=== PATIENT | male | born 1945 | race Caucasian/White ===

== ENCOUNTER 2018-08-12 20:01 | Observation (INO) | payer MEDICARE, OTHER ==
[~2018-08-12] VITALS: Ht 167.6 cm; Wt 132.3 kg
[2018-08-12 20:42] LABS: BASOPHILS ABSOLUTE AUTO 0.05 K/mm3 (0.00-0.23); BASOPHILS PERCENT AUTO 1 % (0-2); EOSINOPHILS ABSOLUTE AUTO 0.24 K/mm3 (0.00-0.68); EOSINOPHILS PERCENT AUTO 3 % (0-6); Hematocrit 45.4 % (37.0-53.0); Hemoglobin 14.8 g/dL (13.5-17.5); IMMATURE GRAN ABSOLUTE AUTO 0.03 K/mm3 (0.00-0.10); IMMATURE GRAN PERCENT AUTO 0 % (0-1); LYMPHOCYTES ABSOLUTE AUTO 2.64 K/mm3 (0.84-5.20); LYMPHOCYTES PERCENT AUTO 30 % (21-46); MONOCYTES ABSOLUTE AUTO 1.04 K/mm3 (0.16-1.47); MONOCYTES PERCENT AUTO 12 % (4-13); Mean Corpuscular HGB 30.6 pg (26.0-34.0); Mean Corpuscular HGB Conc 32.6 g/dL (31.5-36.5); Mean Corpuscular Volume 94 fL (80-100); Mean Platelet Volume 10.3 fL (9.1-12.4); NEUTROPHILS ABSOLUTE AUTO 4.82 K/mm3 (1.96-9.15); NEUTROPHILS PERCENT AUTO 55 % (41-73); Platelet Count 243 K/mm3 (150-400); RDW Coefficient Variation 14.1 % (11.7-14.2); RDW Standard Deviation 48.5 fL (35.1-46.3); Red Blood Cell Count 4.84 M/mm3 (4.30-5.90); White Blood Cell Count 8.82 K/mm3 (4.00-11.30)
[2018-08-12 21:03] LABS: Alanine Aminotransfer (ALT/SGP 23 U/L (12-78); Albumin, Blood 3.4 g/dL (3.4-5.0); Albumin/Globulin Ratio 0.9 (0.8-1.8); Alk Phos 62 U/L (50-136); Anion Gap 6 mmol/L (6-16); Aspartate Aminotrans (AST/SGOT 29 U/L (12-37); Bilirubin, Total 0.6 mg/dL (0.1-1.0); Blood Urea Nitrogen 20 mg/dL (8-24); CO2, Blood 26 mmol/L (21-32); Calcium, Blood 8.2 mg/dL (8.5-10.1); Chloride, Blood 111 mmol/L (98-108); Creatinine, Blood 1.25 mg/dL (0.60-1.20); Globulin, Blood 3.8 g/dL (2.2-4.0); Glomerular Filtration Rate >60 (60-); Glucose, Blood 103 mg/dL (70-99); Potassium, Blood 3.9 mmol/L (3.5-5.5); Sodium, Blood 143 mmol/L (136-145); Total Protein, Blood 7.2 g/dL (6.4-8.2); Troponin I 0.019 ng/mL (0.000-0.040)
[2018-08-12] MEDS ORDERED: **INCOMPLETE MED REC (22:07)
[2018-08-12] MEDS ORDERED: DIGOX250 MCG PO (22:44)
[2018-08-12] MEDS ORDERED: DILT120 PO (22:45)
[2018-08-12] MEDS ORDERED: LOSARTAN POTAS100 MG PO (22:46)
[2018-08-12] MEDS ORDERED: TAMS.4ER PO (22:46)
[2018-08-12 22:49] LABS: Digoxin (Lanoxin) 0.82 ug/mL (0.80-2.00)
[2018-08-12] MEDS ORDERED: WARF5 PO (22:52)
[2018-08-12 23:18] LABS: International Normalized Ratio 1.92; Prothrombin Time Results 19.2 Sec (9.7-11.5)
[2018-08-13 03:07] LABS: CHOL/HDL RATIO 4.7; Cholesterol 140 mg/dL (50-200); HDL Cholesterol 30 mg/dL (>39); LDL/HDL RATIO 3.1; Low Density Lipoprotein Chol 92 mg/dL (0-110); Triglycerides 88 mg/dL (30-160); Very Low Density Lipoprot Chol 17 mg/dL (6-32)
--- NOTE | 2018-08-13 05:48 | NUR ---
SHIFT SUMMARY AFTER ARRIVAL TO FLOOR PT DENIED ANY CX PAIN OR PRESSURE. PT REPORTED NO SOB. AFTER RECIEVING CPAP PT WENT TO SLEEP. PT HAD NO COMPLAINTS OR ACUTE ISSUES NOTED. CURRENTLY PT IS SLEEPING AND BREATHING EASY. CALL LIGHT IN REACH.
--- NOTE | 2018-08-13 11:12 | NUR ---
NOTIFIED DR. MARTINES PT'S TROPONIN LEVELS INCREASED TO 0.033 FROM O.O19 YESTERDAY AND THAT PT IS DENYING CHEST PAIN/PRESSURE. NO NEW ORDERS AT THIS TIME.
--- NOTE | 2018-08-13 16:08 | NUR ---
NOTIFIED DR. MARTINES PT'S ECHO RESULTS ARE IN. DR. MARTINES SAID HE IS GOING TO REVIEW RESULTS AND CALL ME BACK. NO NEW ORDERS AT THIS TIME.
[2018-08-13 17:50] LABS: International Normalized Ratio 1.99; Prothrombin Time Results 19.8 Sec (9.7-11.5)
--- NOTE | 2018-08-13 18:18 | NUR ---
SHIFT SUMMARY- PT DENIES CHEST PAIN/PRESSURE. PT DENIES SOB. RESP E/U ON RA. PT DENIES N/V. PT HAD ECHO TODAY. PT AWAITING EKG. ANIMAL CARE GIVER NOTIFIED LATE THIS AFTERNOON. CARDIO CONSULT CALLED IN TO DR. THACKER. DR. THACKER REPORTS SHE WILL BE IN LATER THIS EVENING. PT TO HAVE STRESS TEST TOMMORROW MORNING. PT TO HAVE NO CAFFIENE FOR 12 HOURS PRIOR TO TEST. PT TO BE NPO 4 HOURS PRIOR TO PROCEDURE. PT AWARE AND HAS NOT HAD ANY CAFFIENE THIS EVENING. INDEPENDENT IN THE ROOM. FAMILY IN TO VISIT PT THIS AM AND AFTERNOON. NO OTHER SIGNIFICANT CHANGES THIS SHIFT.
[2018-08-14 05:53] LABS: International Normalized Ratio 1.75; Prothrombin Time Results 17.6 Sec (9.7-11.5)
--- NOTE | 2018-08-14 05:53 | NUR ---
72 Y/O MALE SLEPT IN LOUNGE CHAIR ALL EVENING WHILE WEARING C-PAP--PERSONAL DEVICE FROM HOME. PTS LUNG SOUNDS ARE COARSE THROUGHOUT WITH OCCASIONAL NON PRODUCTIVE COUGH NOTED. PT DENIES PAIN OR NAUSEA. PT IS SCHEDULED FOR HEART STESS TEST THIS AM AND HAS BEEN NPO SINCE 0900. PT WAS STARTED ON COUMADIN 5MG LAST NIGHT AFTER CARDIOLOGY CONSULT. PTS BED LOW POSITION WITH CALL LIGHT AT SIDE.
--- NOTE | 2018-08-14 16:42 | NUR ---
SHIFT SUMMARY NO ACUTE CHANGES. PATIENT HAD PART ONE OF STRESS TEST TODAY. PATIENT ON HEPARIN DRIP. NO COMPLAINTS OF CHEST PAIN OR SHORTNESS OF BREATH. PATIENT REPORTS VERY MILD NAUSEA AND STATES HE DOES NOT NEED MEDICATION. INDEPENDENT IN ROOM, FAMILY AT BEDSIDE. CALL LIGHT IN REACH, WILL CONTINUE TO MONITOR.
--- NOTE | 2018-08-15 04:17 | NUR ---
72 Y/O OBESE MALE RESTING LOUNGE CHAIR ALL EVENING WHILE WEARING PERSONAL C/PAP MACHINE WITH O2 SATS 94%. PT DENIES CHEST PAIN OR NAUSEA, HEPARIN INFUSING WITHOUT ISSUES WITH NEXT PPT DRAW SCHEDULED FOR 0500. PT ALERT AND ORIENTED X 3. TELEMETRY REFLECTS A/FIB WITH PVC'S. PTS CALL LIGHT AT SIDE.
[2018-08-15 05:32] LABS: BASOPHILS ABSOLUTE AUTO 0.05 K/mm3 (0.00-0.23); BASOPHILS PERCENT AUTO 1 % (0-2); EOSINOPHILS ABSOLUTE AUTO 0.29 K/mm3 (0.00-0.68); EOSINOPHILS PERCENT AUTO 3 % (0-6); Hemoglobin 14.5 g/dL (13.5-17.5); IMMATURE GRAN ABSOLUTE AUTO 0.04 K/mm3 (0.00-0.10); IMMATURE GRAN PERCENT AUTO 1 % (0-1); LYMPHOCYTES ABSOLUTE AUTO 3.04 K/mm3 (0.84-5.20); LYMPHOCYTES PERCENT AUTO 34 % (21-46); MONOCYTES ABSOLUTE AUTO 0.96 K/mm3 (0.16-1.47); MONOCYTES PERCENT AUTO 11 % (4-13); Mean Corpuscular HGB 30.3 pg (26.0-34.0); Mean Corpuscular HGB Conc 32.2 g/dL (31.5-36.5); Mean Corpuscular Volume 94 fL (80-100); Mean Platelet Volume 11.1 fL (9.1-12.4); NEUTROPHILS PERCENT AUTO 51 % (41-73); Platelet Count 238 K/mm3 (150-400); RDW Coefficient Variation 13.9 % (11.7-14.2); RDW Standard Deviation 48.7 fL (35.1-46.3); Red Blood Cell Count 4.79 M/mm3 (4.30-5.90); White Blood Cell Count 8.88 K/mm3 (4.00-11.30)
[2018-08-15 05:44] LABS: International Normalized Ratio 1.69; Prothrombin Time Results 17.1 Sec (9.7-11.5)
[2018-08-15 06:08] LABS: Anion Gap 9 mmol/L (6-16); Blood Urea Nitrogen 20 mg/dL (8-24); Bun/Creatinine Ratio 16.5 (12.0-20.0); CO2, Blood 25 mmol/L (21-32); Calcium, Blood 8.9 mg/dL (8.5-10.1); Chloride, Blood 107 mmol/L (98-108); Creatinine, Blood 1.21 mg/dL (0.60-1.20); Glomerular Filtration Rate >60 (60-); Glucose, Blood 95 mg/dL (70-99); Potassium, Blood 3.7 mmol/L (3.5-5.5); Sodium, Blood 141 mmol/L (136-145)
--- NOTE | 2018-08-15 11:15 | NUR ---
STRESS TEST RESULTS AVAILABLE LATE ENTRY DR. BERKOWITZ CALLED AT 1115 & INFORMED THAT STRESS TEST IMAGES ARE READY. DR. MARTINES STATED HE THINKS THE PT WILL DC TODAY, BUT WILL REVIEW THE IMAGES MORE CLOSELY BEFORE HE PLACES ORDERS. PT & FAMILY AWARE.
[2018-08-15] MEDS ORDERED: ASPI81CH (13:29)
[2018-08-15] MEDS ORDERED: Nitrostat0.4 MG SL (13:29)
[2018-08-15] MEDS ORDERED: ATOR10 PO (13:30)
[2018-08-15] MEDS ORDERED: FURO20 PO (13:31)
[2018-08-15] MEDS ORDERED: POTCHL20ER PO (13:31)
--- NOTE | 2018-08-15 14:33 | NUR ---
PT DISCHARGED- LATE ENTRY PT DISCHARGED AT 1550. PT IN STABLE CONDITION WITH VSS. PT & EDUCATED ON DC INSTRUCTIONS. PT STATED NO FURTHER QUESTIONS. PT WHEELED OUT BY THIS RN AND DRIVEN HOME BY .
== END 2018-08-15 13:43 | disposition home or self-care (01) ==
LOC: ER 20:01 → MEDS 20:02 → ER 08-13 01:15 → MEDS 08-13 01:43 → ENPENDDIS 08-15 13:03 → MEDS 08-15 13:43
PROVIDERS: Internal Medicine Cardiovascular Disease; Nurse Practitioner Acute Care; Physician Assistant; ADMIT Internal Medicine
DX: R07.9 Chest pain, unspecified (principal); I49.3 Ventricular premature depolarization; I48.2 Chronic atrial fibrillation; I13.0 Hypertensive heart and chronic kidney disease with heart failure and stage 1 through stage 4 chronic kidney disease, or unspecified chronic kidney disease; I50.31 Acute diastolic (congestive) heart failure; N18.3 Chronic kidney disease, stage 3 (moderate); G47.33 Obstructive sleep apnea (adult) (pediatric); N40.0 Benign prostatic hyperplasia without lower urinary tract symptoms; R93.1 Abnormal findings on diagnostic imaging of heart and coronary circulation; R79.89 Other specified abnormal findings of blood chemistry; R60.0 Localized edema; M54.5 Low back pain; G89.29 Other chronic pain; M19.90 Unspecified osteoarthritis, unspecified site; E66.01 Morbid (severe) obesity due to excess calories; Z51.81 Encounter for therapeutic drug level monitoring; Z99.89 Dependence on other enabling machines and devices; Z88.1 Allergy status to other antibiotic agents; Z79.899 Other long term (current) drug therapy; Z79.01 Long term (current) use of anticoagulants; Z68.43 Body mass index [BMI] 50.0-59.9, adult
CPT/HCPCS: 36415; 71046; 78452; 80048; 80053; 80061; 80162; 82330; 83735; 83880; 84484; 85025; 85610; 85730; 93005; 93010; 93017; 93306; 94660; 94762; 96365; 96372; 96375; 96376; 99285-25; A9500; G0378; J1644; J1650; J1940; J2785; J3475

== ENCOUNTER → 2020-08-20 | Outpatient (CLI) | payer MEDICARE, OTHER ==
[~2020-08-20] MED LIST: **INCOMPLETE MED REC; ASPI81CH; ATOR10 PO; DIGOX250 MCG PO; DILT120 PO; FURO20 PO; LOSARTAN POTAS100 MG PO; Nitrostat0.4 MG SL; POTCHL20ER PO; TAMS.4ER PO; WARF5 PO
== END | disposition home or self-care (01) ==
LOC: LAB 15:08 → LAB SHORT 15:08
DX: D48.5 Neoplasm of uncertain behavior of skin (principal)
CPT/HCPCS: 88305